=== PATIENT | male | born 1945 | race Caucasian/White ===

== ENCOUNTER 2016-08-29 05:13 | Inpatient (IN) ==
[2016-08-24 10:53] LABS: HEMATOCRIT 44.4 % (42.0-52.0); HEMOGLOBIN 15.8 g/dL (14.0-18.0); MCH 29.9 PG (27-31); MCHC 35.6 g/dL (33-37); MCV 84.1 FL (81-99); MPV 9.7 FL (7.4-10.4); RBC 5.28 XMIL (4.7-6.1)
--- NOTE | 2016-08-24 11:10 | EKG Report ---
Test Performed on : 08/24/2016 10:41:45 AM Test Reason : PAT Blood Pressure : / mmHG Vent. Rate : 067 BPM Atrial Rate : 067 BPM P-R Int : 176 ms QRS Dur : 096 ms QT Int : 384 ms P-R-T Axes : 051 -65 016 degrees QTc Int : 405 ms Normal sinus rhythm. Left anterior fascicular block Abnormal ECG When compared with ECG of 10-OCT-2015 13:44, premature supraventricular complexes. are no longer present Vent. rate has decreased BY 48 BPM Confirmed by Roel SMITH, Yahir Arthur ([id number]) on 08/24/2016 6:00:40 PM
[2016-08-24 11:17] LABS: CALCIUM 9.7 mg/dL (8.8-10.2); POTASSIUM 4.7 mmol/L (3.5-5.1)
[2016-08-29] MEDS ORDERED: PEPCID ONE (05:30)
[2016-08-29] MEDS ORDERED: KEFZOL 2 GM/D5W 2 GM/50 ML IVPB ONE (05:30)
[2016-08-29] MEDS ORDERED: LR 1,000 ML ONE ×2 (05:30→13:08)
[2016-08-29] MEDS ORDERED: MARCAINE 0.25% PF/EPI 1:200,000 ONE (06:56)
[2016-08-29] MEDS ORDERED: KEFZOL ONE (07:16)
[2016-08-29 08:30] LABS: URINE MICRO REVIEW NEEDED? NO; URINE SOURCE CATH
[2016-08-29] MEDS ORDERED: FENTANYL ONE (08:32)
[2016-08-29] MEDS ORDERED: MORPHINE ONE (08:32)
[2016-08-29] MEDS ORDERED: DIPRIVAN 1% ONE (08:33)
[2016-08-29 08:37] LABS: BILIRUBIN URINE NEGATIVE (NEGATIVE); BLOOD URINE NEGATIVE (NEGATIVE); COLOR YELLOW; GLUCOSE URINE NEGATIVE (NEGATIVE); LEUKOCYTES URINE NEGATIVE (NEGATIVE); NITRITE URINE NEGATIVE (NEGATIVE); PROTEIN URINE 30 mg/dL (NEGATIVE); SP GRAVITY URINE 1.018; TURBIDITY URINE CLEAR (CLEAR); UR EPITHELIAL CELLS <10 /HPF (<10); URINE BACTERIA NEGATIVE /HPF; URINE RBC <10 /HPF (<10); URINE WBC <10 /HPF (<10); UROBILINOGEN URINE NORMAL (NORMAL)
[2016-08-29] MEDS: MORPHINE ONE ×2 (08:45→08:59)
[2016-08-29] MEDS ORDERED: NS 1,000 ML ONE (09:13)
--- NOTE | 2016-08-29 09:52 | OPERATIVE NOTE ---
PROCEDURE DATE: 08/29/2016 PROCEDURE PERFORMED: Open repair of recurrent ventral incisional hernia using Parietex composite squirted mesh (25 x 20 cm). SURGEON: Olaf Robles MD. MITER CUTTER: Dalton Bird. PREOPERATIVE DIAGNOSIS: Recurrent ventral incisional hernia. POSTOPERATIVE DIAGNOSIS: Recurrent ventral incisional hernia. INDICATION: A 71-year-old who had previously placed mesh in the periumbilical area. He had a subsequent laparotomy and developed a recurrent hernia just cephalad to the previously placed mesh. DESCRIPTION OF PROCEDURE: After satisfactory general endotracheal anesthesia was achieved, the abdomen was prepped and draped in a sterile fashion. Ioban drape used. Prophylactic Kefzol was given. We made an incision in the area of the old scar. We carried our incision down to the hernia sac and dissected it down to the fascia circumferentially. The previously placed mesh was noted in the inferior aspect of the incision. Some of it had been split with a laparotomy. We had to carefully dissect adhesions from the hernia sac the small bowel from the hernia sac as well as the back of the previously placed mesh. The adhesions were filmy and not tightly adherent and, there really was minimal trouble the adhesions from the back of the mesh. We the bowel from the anterior abdominal wall in order to allow placement of new mesh. After excising the hernia sac, it looked like there was about a 14 x 14 cm defect. So, we decided that a 25 x 20 Parietex composite skirted mesh would be appropriate. We obtained that and placed it inside the abdominal cavity as an underlay. We then circumferentially used an AbsorbaTack to tack the mesh to the anterior abdominal wall inside the skirt. Following that, we took some 2-0 Prolene and, again, sewed the skirted portion of the mesh to the anterior abdominal wall using 2-0 Prolene at the scalloped portion of the skirt. This added additional attachments to the anterior abdominal wall for the skirted mesh. The skirted mesh laid nicely inside the abdominal cavity as an underlay as we had all the adhesions to prevent any scalloping or wrinkling of the mesh. Because of the separation of the fascia, we could not approximate any fascia. We then simply closed the subcutaneous tissue with 3-0 Polysorb. We then closed the skin with veronica. A sterile island dressing was applied followed by an abdominal binder. He tolerated the procedure satisfactory and was sent to the recovery room in satisfactory condition. cc: Olaf Robles MD MTDD
[2016-08-29] MEDS ORDERED: COLCRYS PO PRN (09:58)
[2016-08-29] MEDS: ZOFRAN IV PRN (10:21)
[2016-08-29] MEDS: NS 1,000 ML IV SCH ×2 (11:11→22:00)
[2016-08-29] MEDS: NORVASC PO SCH (11:16)
[2016-08-29] MEDS: CATAPRES PO SCH ×3 (11:16→22:02)
[2016-08-29] MEDS: TRICOR PO SCH (11:16)
[2016-08-29] MEDS ORDERED: NEOSTIGMINE ONE (13:06)
[2016-08-29] MEDS ORDERED: ZEMURON ONE (13:07)
[2016-08-29] MEDS ORDERED: EPHEDRINE ONE (13:07)
[2016-08-29] MEDS ORDERED: STERILE WATER INJ. ONE (13:07)
[2016-08-29] MEDS ORDERED: ZOFRAN ONE (13:07)
[2016-08-29] MEDS ORDERED: XYLOCAINE-MPF 2% ONE (13:07)
[2016-08-29] MEDS ORDERED: ROBINUL ONE (13:07)
[2016-08-29] MEDS ORDERED: OFIRMEV 1000 MG/ISOTONIC SOLN 1,000 MG/100 ML BOTTLE ONE (13:07)
[2016-08-29] MEDS ORDERED: QUELICIN (DOSE) ONE (13:07)
[2016-08-29] MEDS ORDERED: DECADRON ONE (13:08)
[2016-08-29] MEDS: GLUCOVANCE 5-500 MG TABLET PO SCH ×2 (13:32→16:54)
[2016-08-29] MEDS: NORCO-10 PO PRN ×2 (13:32→21:59)
[2016-08-29] MEDS ORDERED: INSULIN PEN NEEDLES ONE (14:54)
[2016-08-29] MEDS: KEFZOL 1 GM in NS 50 ML IV SCH ×2 (15:52→22:00)
[2016-08-29] MEDS: DILAUDID IV PRN (16:54)
[2016-08-29] MEDS: LANTUS SUBQ SCH (22:01)
[2016-08-29] MEDS: PERIDEX MT SCH (22:01)
[2016-08-30] MEDS: DILAUDID IV PRN ×2 (02:18→10:53)
[2016-08-30] MEDS: NS 1,000 ML IV SCH ×4 (05:32→22:21)
[2016-08-30 05:44] LABS: MANUAL DIFF NEEDED? NO
[2016-08-30 05:51] LABS: BASO% 0.1 % (0.0-0.8); EOS# 0.02 X1000 (0.0-0.7); EOS% 0.2 % (0.0-10.0); HEMATOCRIT 42.1 % (42.0-52.0); HEMOGLOBIN 14.7 g/dL (14.0-18.0); LYMPH# 1.45 X1000 (1.2-3.4); LYMPH% 12.1 % (20.5-51.1); MCH 30.4 PG (27-31); MCHC 34.9 g/dL (33-37); MCV 87.2 FL (81-99); MONO% 7.5 % (1.7-9.3); MPV 9.9 FL (7.4-10.4); NEUT% 80.1 % (42.2-75.2); PLT 247 X1000 (130-400); RBC 4.83 XMIL (4.7-6.1)
[2016-08-30] MEDS: KEFZOL 1 GM in NS 50 ML IV SCH ×3 (06:07→21:53)
[2016-08-30 06:11] LABS: CALCIUM 9.2 mg/dL (8.8-10.2); POTASSIUM 5.2 mmol/L (3.5-5.1)
[2016-08-30] MEDS: ZOFRAN IV PRN (06:24)
[2016-08-30] MEDS: MORPHINE ONE (07:30)
[2016-08-30] MEDS: MIRALAX PO SCH (08:59)
[2016-08-30] MEDS: NORCO-10 PO PRN ×3 (08:59→21:53)
[2016-08-30] MEDS: CATAPRES PO SCH ×3 (09:00→21:53)
[2016-08-30] MEDS: NORVASC PO SCH (09:00)
[2016-08-30] MEDS: TRICOR PO SCH (09:00)
[2016-08-30] MEDS: PERIDEX MT SCH ×2 (09:02→21:53)
[2016-08-30] MEDS: GLUCOVANCE 5-500 MG TABLET PO SCH ×2 (11:30→16:48)
[2016-08-30] MEDS: LANTUS SUBQ SCH (22:21)
[2016-08-31] MEDS: KEFZOL 1 GM in NS 50 ML IV SCH ×2 (02:57→06:14)
[2016-08-31] MEDS: NORCO-10 PO PRN ×2 (06:13→20:50)
[2016-08-31] MEDS: NS 1,000 ML IV SCH ×3 (06:15→17:27)
[2016-08-31] MEDS: CATAPRES PO SCH ×3 (11:24→20:50)
[2016-08-31] MEDS: TRICOR PO SCH (11:24)
[2016-08-31] MEDS: MIRALAX PO SCH (11:24)
[2016-08-31] MEDS: PERIDEX MT SCH ×2 (11:24→20:51)
[2016-08-31] MEDS: NORVASC PO SCH (11:24)
[2016-08-31] MEDS: GLUCOVANCE 5-500 MG TABLET PO SCH ×2 (11:25→17:27)
[2016-08-31] MEDS: ZOFRAN IV PRN ×3 (12:22→20:51)
[2016-08-31] MEDS: DILAUDID IV PRN (12:22)
[2016-08-31] MEDS ORDERED: DULCOLAX PR ONE (12:50)
[2016-09-01] MEDS: LANTUS SUBQ SCH ×2 (04:47→21:41)
[2016-09-01] MEDS: NS 1,000 ML IV SCH (04:47)
[2016-09-01] MEDS: PERIDEX MT SCH ×2 (09:06→21:40)
[2016-09-01] MEDS: GLUCOVANCE 5-500 MG TABLET PO SCH ×2 (09:06→16:39)
[2016-09-01] MEDS: CATAPRES PO SCH ×3 (09:06→21:40)
[2016-09-01] MEDS: NORVASC PO SCH (09:06)
[2016-09-01] MEDS: TRICOR PO SCH (09:07)
[2016-09-01] MEDS ORDERED: NS 1,000 ML IV SCH (09:07)
[2016-09-01] MEDS: MIRALAX PO SCH (09:39)
[2016-09-01] MEDS: NORCO-10 PO PRN (21:40)
[2016-09-02 08:52] VITALS: BP 166/77
[2016-09-02] MEDS: NORVASC PO SCH (08:57)
[2016-09-02] MEDS: GLUCOVANCE 5-500 MG TABLET PO SCH (08:57)
[2016-09-02] MEDS: CATAPRES PO SCH (08:58)
[2016-09-02] MEDS: PERIDEX MT SCH (08:58)
[2016-09-02] MEDS: TRICOR PO SCH (08:58)
[2016-09-02] MEDS: MIRALAX PO SCH (08:58)
--- NOTE | 2016-09-02 09:34 | DISCHARGE SUMMARY ---
ADMISSION DATE: 08/30/2016 DISCHARGE DATE: 09/02/2016 ADMITTING DIAGNOSIS: Recurrent ventral hernia midline of the abdomen. DISCHARGE DIAGNOSIS: Recurrent ventral hernia midline of the abdomen PRINCIPAL PROCEDURE: Open mesh repair of recurrent ventral hernia on 08/29/2016. During surgery a 25 x 20 cm piece of Parietex composite mesh was used. HOSPITAL COURSE: He was hospitalized after surgery and we felt that his postoperative convalescence was been normal. It was felt safe to discharge him to his home on 09/02/2016 under the care of his . At discharge his wound was healing well. There was no evidence of recurrent hernia. He was tolerating a diet and having bowel activity. There was no evidence of infection. His heart rate was 59, blood pressure 154/74, O2 saturation 95%. He had no work of breathing. He was afebrile on no antibiotics. DISPOSITION: He will return to see Dr. Robles this coming Sunday for follow up. cc: MD Olaf Hernandez MD
== END 2016-09-02 09:08 | disposition home or self-care (01) ==
LOC: OR 05:13 → SURHOLD 05:13 → 4N 09:06
PROVIDERS: ADMIT Surgery; ATTEND Surgery